=== PATIENT | male | born 1960 | race Caucasian/White ===

== ENCOUNTER 2017-05-23 07:44 | Emergency (ER) | payer OTHER ==
[2017-05-23] MEDS ORDERED: KETOROLAC 30 MG/ML INJ. (08:57)
[2017-05-23] MEDS: KETOROLAC 60 MG/2 ML INJ. IM (09:22)
== END 2017-05-23 09:25 | disposition home or self-care (01) ==
LOC: ER 07:44
DX: S86.911A Strain of unspecified muscle(s) and tendon(s) at lower leg level, right leg, initial encounter (principal); F17.210 Nicotine dependence, cigarettes, uncomplicated
CPT/HCPCS: 29505; 93971; 96372; 99284-25; J1885

== ENCOUNTER → 2017-06-04 | Outpatient (CLI) | payer OTHER | END | disposition home or self-care (01) | LOC: KCIC MRI 11:45 | DX: M17.11 Unilateral primary osteoarthritis, right knee (principal); M94.261 Chondromalacia, right knee; M25.861 Other specified joint disorders, right knee | CPT/HCPCS: 73721 ==